=== PATIENT | female | born 1985 | race Caucasian/White ===

== ENCOUNTER 2022-07-03 11:07 | Outpatient (CLI) | payer OTHER, SELFPAY ==
[2022-07-03 16:54] LABS: Cholesterol* 195 mg/dL (90-199); Glucose* 90 mg/dL (60-115); HDL Cholesterol* 62 mg/dL (>=50); LDL Cholesterol Calculated 118 mg/dL (<100); Triglycerides* 74 mg/dL (40-149)
== END 2022-07-03 11:08 | disposition home or self-care (01) ==
PROVIDERS: PCP Physician Assistant Medical; Visit Provider Physician Assistant
DX: Z13.6 Encounter for screening for cardiovascular disorders (principal); Z13.1 Encounter for screening for diabetes mellitus
CPT/HCPCS: 80061; 82947

== ENCOUNTER 2023-09-10 12:54 | Outpatient (CLI) | payer OTHER, SELFPAY | END 2023-09-10 12:55 | disposition home or self-care (01) | LOC: LKVREF 12:55 | PROVIDERS: PCP Physician Assistant Medical; Visit Provider Physician Assistant | DX: Z13.220 Encounter for screening for lipoid disorders (principal) | CPT/HCPCS: 80061 ==